=== PATIENT | female | born 2000 | race Caucasian/White ===

== ENCOUNTER 2022-03-05 17:29 | Emergency (ER) | payer BC, SELFPAY ==
[2022-03-05 17:36] VITALS: BP 138/87; PULSE 67; RESP 18; O2SAT 97; BMI 19.3
[2022-03-05 17:40] VITALS: BP 126/54; PULSE 81; RESP 18; O2SAT 96
--- NOTE | 2022-03-05 17:44 | XRR_ITS ---
PROCEDURE INFORMATION: Exam: XR Right Knee Exam date and time: 03/05/2022 5:51 PM Age: 21 years old Clinical indication: Injury or trauma; Other: Patella dislocation; Patella or knee; Injury date: 03/05/2022; Injury details: Person sitting on patients lap slid and patella moved causing dislocation of right knee; Prior surgery; Surgery type: Acl repair; Additional info: Patellar dislocation follow up TECHNIQUE: Imaging protocol: XR Right knee. Views: 1 or 2 views. COMPARISON: MRI Knee w/o RIGHT* [id number] 11/30/2017 7:23 AM FINDINGS: Bones/joints: Post reduction radiographs demonstrate normal alignment of the patella. Sequela of prior ACL repair. Visualized osseous structures are intact. Negative for fracture. Joint spaces are preserved. Soft tissues: Normal. XR/XR knee RT 1-2V [id number] IMPRESSION: Post reduction radiographs demonstrate normal alignment of the patella.
--- NOTE | 2022-03-05 17:45 | W.ED.EXTPRO ---
HPI - Extremity Problem General: Chief complaint: Extremity Injury, Lower Stated complaint: R KNEE PAIN Time Seen by Provider: 03/05/22 17:36 Source: patient Mode of arrival: EMS Limitations: no limitations History of Present Illness: This patient was transported by EMS to the emergency department. She was sitting with her legs extended and child was sitting in her lap and then suddenly pushed off on her right leg to move off her lap. The patient states she felt immediate pain and had an abnormal appearing knee joint. She was unable to move or bend her leg because of pain. EMS was notified and she eventually made her way here. She otherwise denies any injury. Her past medical history is remarkable for an ACL repair on that same knee. This was done approximately 4 years ago. She is not subsequently had any knee issues or problems. She regularly participates in competitive sports but wears a knee brace on that knee. MD Complaint: joint pain Pain Consistency: constant Location: right and knee Relieving factors: nothing Associated symptoms: Deny chest pain, fever(s) or rash Review of Systems Const: Denies: fever(s) or chills Eyes: Denies: change in vision or blurry vision ENMT: Denies: throat pain or odynophagia Card: Denies: chest pain, palpitations or irregular heart rhythm Resp: Denies: dyspnea, productive cough or non-productive cough GI: Denies: abdominal pain, nausea or vomiting : Denies: flank pain, difficulty voiding or dysuria Musc: Reports: extremity pain, joint pain and limited range of motion; Denies: neck pain or back pain Skin/Breast: Denies: rash, pruritus or erythema Neuro: Denies: headache(s), numbness in extremities or weakness in extremities Psych: Denies: anxiety or depression Endo: Denies: polyuria or polydipsia Physical Exam Narrative: EXAM NARRATIVE: The patient is alert and cooperative. A bit anxious but otherwise goal-directed in her speech. Const: COMMON NORMALS: patient oriented x3, healthy appearing and alert GENERAL APPEARANCE: cooperative HENMT: COMMON NORMALS: normocephalic and moist oral mucous membranes HEAD & SCALP: normocephalic Eye: COMMON NORMALS: Equal, round and reactive pupils present PUPIL: Yes Equal, round and reactive pupils present Neck/C-Spine: CERVICAL SPINE: Yes cervical ROM normal and No Cervical spine tenderness Chest: COMMONS NORMALS: normal inspection of the chest Resp: COMMON NORMALS: normal respiratory effort, No retractions and clear to auscultation bilaterally AUSCULTATION: clear to auscultation bilaterally Cardio: COMMON NORMALS: regular rate, regular rhythm, No murmurs present (Cardio) and Peripheral pulses 2+ throughout RATE: regular rate RHYTHM: regular rhythm PERIPHERAL PULSES: Peripheral pulses 2+ throughout Back/Pelvis: COMMON NORMALS: thoracic and lumbar spine normal to inspection, no thoracic nor lumbar tenderness and thoraco-lumbar ROM normal Extremity: GENERAL: Yes normal exam except as noted RIGHT LOWER EXTREMITY: Yes knee joint (Examination with attention of the right knee reveals displacement of the pa) Right knee: Yes neurovascular exam Neuro: COMMON NORMALS: patient oriented x3, no focal motor deficits and no sensory deficits noted SENSORIUM/ORIENTATION: Yes alert Skin: COMMON NORMALS: no rashes or lesions noted, no wounds and turgor normal GENERAL SKIN EXAM: no rashes or lesions noted and turgor normal Procedures Orthopedic Joint Reduction Joint #1: Side: right Joint Reduction Location: knee/patella Analgesia: none Technique used: direct manipulation Post-reduction neuro exam: intact Post-reduction vascular: intact Post Reduction X-Ray Obtained: Yes Post Reduction X-Ray Results: reduced Splint Applied: Yes (Knee immobilizer) Patient Tolerated Procedure: well Course Reevaluation(s): Reevaluation #1: She is comfortable much less discomfort now after reduction and ice placed over the knee. Repeat examination revealed intact patellar and quadricep tendon function. No laxity, no effusion neurovascular intact distally. Time: 18:27 Vital Signs: Vital signs: Vital Signs Pulse Rate 67 03/05/22 17:36 Respiratory Rate 18 03/05/22 17:36 Blood Pressure 138/87 03/05/22 17:36 Pulse Oximetry 97 03/05/22 17:36 MDM - Extremity (Nontraumatic) Medical Decision Making Patient in our emergency department with a right patellar dislocation. Easily reduced by direct manipulation. Follow-up radiographs are unremarkable. We discussed home care and expected course. We will place her in a knee immobilizer for the next 7 to 10 days with crutches to use as needed. She has not involved in a competitive athletics or otherwise any other potential stressful activities and she was advised to not engage in any of those activities for least 2 weeks. Also discussed return precautions. Imaging Data Xray Ortho: I personally reviewed and interpreted this imaging study as follows: My impression: 2 view right knee was reviewed. No evidence of any bony disruption. Essentially unremarkable knee x-ray. Discharge Plan Discharge Patient Disposition: Home Clinical Impression: Closed dislocation of right patella Condition: Stable Discharge Orders: Discharge ED (Routine); Ordered 03/05/22 Ordered By: Brandon Coffman Referrals: Teena Velazquez MD [Primary Care Provider] - Discharge Diet: Usual diet Discharge Activity: Increase activity as tolerated and Use walker/crutches as instructed Patient Instructions: Opioid Safety Activity Restrictions/Additional Instructions: Wear knee immobilizer on the affected knee during the day for the next 7 days. You may use crutches for the initial several days to reduce weightbearing on the right knee. Apply ice for the next 2 days for 10 to 15 minutes to help reduce pain and swelling. May take either ibuprofen or acetaminophen as needed for pain. If you continue to have pain more than 1 week or any increasing pain anytime or any other concerns return to this or the nearest emergency department. Do not engage in any running jumping or other significant physical activities for minimum of 2 weeks Coding Level of Care Code ED Medical Coding Instructor for Kel Fwd Exam Comprehensive
[2022-03-05 19:06] VITALS: BP 126/54; PULSE 81; RESP 18; O2SAT 96
== END 2022-03-05 19:10 | disposition home or self-care (01) ==
PROVIDERS: Emergency Provider Emergency Medicine; PCP Family Medicine
DX: S83.004A Unspecified dislocation of right patella, initial encounter (principal); X50.1XXA Overexertion from prolonged static or awkward postures, initial encounter
CPT/HCPCS: 27550; 73560; 99283; E0114